=== PATIENT | male | born 1980 | race African-American/Black ===

== ENCOUNTER 2022-03-28 08:22 | Emergency (ER) | payer SELFPAY ==
[~2022-03-28] VITALS: Ht 185.4 cm; Wt 86.2 kg
[2022-03-28] MEDS ORDERED: ONDANSETRON HCL 4 MG ORAL DISINTEGRATING TAB PO ONE (09:30)
[2022-03-28] MEDS ORDERED: IBUPROFEN 600 MG TAB PO ONE (09:30)
[2022-03-28] MEDS ORDERED: DEXAMETHASONE 10MG/ML PF INJ INJ ONE (09:30)
[2022-03-28] MEDS ORDERED: ACETAMINOPHEN 325 MG TAB PO ONE (09:30)
[2022-03-28] MEDS ORDERED: LISINOPRIL10 MG PO ×2 (09:31→09:43)
[2022-03-28] MEDS ORDERED: PREDNISONE50 MG PO (09:43)
[2022-03-28] MEDS ORDERED: IBUPROFEN200 MG PO (09:43)
[2022-03-28] MEDS ORDERED: ACETAMINOPHEN500 MG PO (09:43)
[2022-03-28] MEDS ORDERED: IBUPROFEN 600 MG TAB ONE (09:46)
[2022-03-28] MEDS ORDERED: DEXAMETHASONE SOD PHOS INJ 4 MG/ML SDV ONE (09:46)
== END 2022-03-28 10:12 | disposition home or self-care (01) ==
LOC: FSED 08:35
DX: M54.41 Lumbago with sciatica, right side (principal); G58.8 Other specified mononeuropathies; I10 Essential (primary) hypertension
CPT/HCPCS: 96372; 99283; J1100; Q0162